=== PATIENT | female | born 1935 | race Caucasian/White ===

== ENCOUNTER 2017-09-20 10:26 | Day surgery (SDC) | payer MEDICARE, BC ==
[~2017-09-20 10:26] MED LIST: Buffered Lidocaine 0.9% SYRIN* 5 ML/SYR SYRINGE INTRADERM ONE
[2017-09-20] MEDS ORDERED: acetaZOLAMIDE TAB* 250 MG ONE (12:24)
[2017-09-20] MEDS ORDERED: Lidocaine 1%* 5 ML VIAL ONE (12:24)
[2017-09-20] MEDS ORDERED: Povidone Iodine 5% OPTH* 30 ML BTL ONE (12:24)
[2017-09-20] MEDS ORDERED: Cyclopentolate 1% OPTH.SOL* 2 ML BTL ONE (12:24)
[2017-09-20] MEDS ORDERED: Neomycin/Polymy/Dex OPTH.SUSP* MAXITROL 0.1% 5 ML ONE (12:24)
[2017-09-20] MEDS ORDERED: Ketorolac 0.5% OPHTH (NF) 0.5 % 5 ML BTL ONE (12:24)
[2017-09-20] MEDS ORDERED: Phenylephrine 2.5% OPTH.SOL* 2 ML BTL ONE (12:24)
[2017-09-20] MEDS ORDERED: Lidocaine 2% EPI 1:200000 MPF*10-20 ML VIAL ONE (12:24)
[2017-09-20] MEDS ORDERED: Proparacaine 0.5% OPHTH.SOL* 15 ML BTL ONE (12:25)
[2017-09-20] MEDS ORDERED: Lidocaine 2% PF * 5 ML VIAL ONE (13:06)
[2017-09-20] MEDS ORDERED: Propofol* 10 MG/ML 20 ML BTL IV PUSH ONE (13:06)
[2017-09-20 13:34] VITALS: BP 114/45
--- NOTE | 2017-09-21 09:25 | OP ---
DATE OF OPERATION: 09/20/17 - [facility] DATE OF : 39 SURGEON: Mick Jaime M.D. PREOPERATIVE DIAGNOSIS: Cataract, left eye. POSTOPERATIVE DIAGNOSIS: Cataract, left eye. OPERATIVE PROCEDURE: Extracapsular cataract extraction with intraocular lens implant left eye. DESCRIPTION OF PROCEDURE: The patient was brought to the operating room after being given 1/2% Alcaine with epinephrine drops in the preoperative area. The eye was prepped and draped in the usual sterile fashion. Sterile drape and eyelid speculum were placed. Again, topical 1/2% Alcaine with epinephrine was given. A paracentesis incision was made at the 3 o'clock position with the No.75 blade. Clear cornea incision 2.2 x 2.2-mm was created at the 6 o'clock position starting at the anterior limbus using the 2.2-mm keratome. The anterior chamber was irrigated with 0.4 mL of 1% non-preservative intracameral lidocaine and filled with DisCoVisc. A capsulorrhexis was completed using the cystotome and the Utrata forceps. Hydrodissection was performed with balanced salt solution. The lens nucleus was removed with the Phacoemulsification handpiece without incident. Cortex was removed with the irrigation-aspiration handpiece. The capsular bag was re-inflated using DisCoVisc and an [id number] implant was inserted with the shooter. The irrigation-aspiration handpiece was used to remove all residual DisCoVisc. The eye was refilled with balanced salt solution and the wound checked and found to be watertight. Topical Maxitrol drops were given. [id number]/[facility] #: [id number] [facility]ITAL[facility]
== END 2017-09-20 13:44 | disposition home or self-care (01) ==
LOC: OREAST 10:26
PROVIDERS: ATTEND Specialist
DX: Z01.818 Encounter for other preprocedural examination (principal); H25.13 Age-related nuclear cataract, bilateral; I50.9 Heart failure, unspecified; I73.9 Peripheral vascular disease, unspecified; I48.2 Chronic atrial fibrillation; Z88.1 Allergy status to other antibiotic agents; Z79.82 Long term (current) use of aspirin
CPT/HCPCS: A9270-GY; J2704; V2632

== ENCOUNTER 2017-09-27 09:22 | Day surgery (SDC) | payer MEDICARE, BC ==
[2017-09-27] MEDS ORDERED: Lidocaine 2% EPI 1:200000 MPF*10-20 ML VIAL ONE (09:56)
[2017-09-27] MEDS ORDERED: acetaZOLAMIDE TAB* 250 MG ONE (09:56)
[2017-09-27] MEDS ORDERED: Povidone Iodine 5% OPTH* 30 ML BTL ONE (09:56)
[2017-09-27] MEDS ORDERED: Cyclopentolate 1% OPTH.SOL* 2 ML BTL ONE (09:56)
[2017-09-27] MEDS ORDERED: Neomycin/Polymy/Dex OPTH.SUSP* MAXITROL 0.1% 5 ML ONE (09:56)
[2017-09-27] MEDS ORDERED: Lidocaine 1%* 5 ML VIAL ONE (09:56)
[2017-09-27] MEDS ORDERED: Ketorolac 0.5% OPHTH (NF) 0.5 % 5 ML BTL ONE (09:56)
[2017-09-27] MEDS ORDERED: Phenylephrine 2.5% OPTH.SOL* 2 ML BTL ONE (09:56)
[2017-09-27] MEDS ORDERED: Midazolam* 1 MG/ML 2 ML VIAL (2 MG) ONE ×2 (11:30→12:30)
[2017-09-27 12:50] VITALS: BP 125/49
--- NOTE | 2017-09-28 10:07 | OP ---
DATE OF OPERATION: 09/27/17 - [facility] DATE OF : 39 SURGEON: Mick Jaime M.D. PREOPERATIVE DIAGNOSIS: Cataract, right eye. POSTOPERATIVE DIAGNOSIS: Cataract, right eye. OPERATIVE PROCEDURE: Extracapsular cataract extraction with intraocular lens implant, right eye. DESCRIPTION OF PROCEDURE: The patient was brought to the operating room after being given 1/2% Alcaine with epinephrine drops in the preoperative area. The eye was prepped and draped in the usual sterile fashion. Sterile drape and eyelid speculum were placed. Again, topical 1/2% Alcaine with epinephrine was given. A paracentesis incision was made at the 9 o'clock position with the No.75 blade. Clear cornea incision 2.2 x 2.2-mm was created at the 12 o'clock position starting at the anterior limbus using the 2.2-mm keratome. The anterior chamber was irrigated with 0.4 mL of 1% non-preservative intracameral lidocaine and filled with DisCoVisc. A capsulorrhexis was completed using the cystotome and the Utrata forceps. Hydrodissection was performed with balanced salt solution. The lens nucleus was removed with the Phacoemulsification handpiece without incident. Cortex was removed with the irrigation-aspiration handpiece. The capsular bag was re-inflated using DisCoVisc and an [id number] implant was inserted with the shooter. The irrigation-aspiration handpiece was used to remove all residual DisCoVisc. The eye was refilled with balanced salt solution and the wound checked and found to be watertight. Topical Maxitrol drops were given. [id number]/[facility] #: [id number] MTDD
== END 2017-09-27 12:59 | disposition home or self-care (01) ==
LOC: OREAST 09:22
PROVIDERS: ATTEND Specialist
DX: H25.11 Age-related nuclear cataract, right eye (principal); J44.9 Chronic obstructive pulmonary disease, unspecified; I48.2 Chronic atrial fibrillation; Z79.01 Long term (current) use of anticoagulants; N18.3 Chronic kidney disease, stage 3 (moderate); I12.9 Hypertensive chronic kidney disease with stage 1 through stage 4 chronic kidney disease, or unspecified chronic kidney disease; F41.8 Other specified anxiety disorders; R60.0 Localized edema; E66.9 Obesity, unspecified
CPT/HCPCS: A9270-GY; J2250; V2632